=== PATIENT | male | born 1995 | race Caucasian/White ===

== ENCOUNTER 2019-05-19 16:01 | Emergency (ER) | payer OTHER ==
[~2019-05-19] VITALS: Ht 195.6 cm; Wt 79.4 kg
[2019-05-19] MEDS ORDERED: NORCO 5-325 TA1 EAC1 PO (17:28)
[2019-05-19] MEDS ORDERED: NAPROSYN500 MG PO (17:28)
[2019-05-19] MEDS ORDERED: MEDROLDOSEPACK PO (17:28)
[2019-05-19 17:43] VITALS: BP 128/76
== END 2019-05-19 17:43 | disposition home or self-care (01) ==
LOC: M.ERS 16:01
DX: M54.42 Lumbago with sciatica, left side (principal); M54.41 Lumbago with sciatica, right side